=== PATIENT | male | born 1965 | race Caucasian/White ===

== ENCOUNTER 2021-08-26 17:08 | Emergency (ER) | payer OTHER ==
[2021-08-26] MEDS ORDERED: ROSUVASTATIN CA20 MG PO (17:31)
[2021-08-26 18:05] LABS: BASO # 0.02 K/mm3 (0.02-0.10); HEMATOCRIT 48.8 % (42.0-52.0); HEMOGLOBIN 16.3 g/dL (13.5-18.0); MEAN CELL VOLUME 86 fl (78-100); MEAN CORPUSCULAR HEMOGLOBIN 29 pg (27-31); MEAN CORPUSCULAR HGB CONC 33 g/dL (33-37); MEAN PLATELET VOLUME 10.8 fl (7.4-10.4); MONO # 0.46 K/mm3 (0.20-0.80); NEU # 2.97 K/mm3 (1.40-6.50); PLATELET COUNT 112 K/mm3 (130-400); RED BLOOD COUNT 5.66 M/mm3 (4.20-5.60); RED CELL DISTRIBUTION WIDTH 11.7 % (11.5-14.5); WHITE BLOOD COUNT 4.6 K/mm3 (4.8-10.8)
[2021-08-26 18:16] LABS: ALBUMIN 3.7 g/dL (3.5-5.0); POTASSIUM 3.8 mmol/L (3.5-5.1); SODIUM 135 mmol/L (136-145)
[2021-08-26 18:18] LABS: CALCIUM 8.7 mg/dL (8.3-10.5)
[2021-08-26 18:19] LABS: GLUCOSE 123 mg/dL (75-110); TOTAL PROTEIN 6.8 g/dL (6.4-8.3)
[2021-08-26 18:20] LABS: CARBON DIOXIDE 24 mmol/L (22-29)
[2021-08-26 18:21] LABS: TOTAL BILIRUBIN 0.3 mg/dL (0.2-1.2)
[2021-08-26 18:24] LABS: AST-SGOT 19 U/L (5-34)
[2021-08-26 18:25] LABS: ALT/SGPT 23 U/L (0-55)
[2021-08-26 18:37] LABS: TROPONIN-I < 0.03 ng/mL (<0.030)
[2021-08-26] MEDS ORDERED: PROAIR DIGIHAL90 MCG IH (19:54)
[2021-08-26] MEDS ORDERED: MORGIDOX 2X100100 MG PO (19:54)
[2021-08-26 20:28] VITALS: BP 110/76
== END 2021-08-26 20:28 | disposition home or self-care (01) ==
LOC: ED 17:08
PROVIDERS: Physician Assistant
DX: U07.1 COVID-19 (principal); J12.82 Pneumonia due to coronavirus disease 2019; E78.5 Hyperlipidemia, unspecified; Z79.899 Other long term (current) drug therapy
CPT/HCPCS: J7030; Q9967